=== PATIENT | female | born 1985 | race Caucasian/White ===

== ENCOUNTER 2016-12-16 14:35 | Emergency (ER) | payer SELFPAY ==
[~2016-12-16] VITALS: Ht 157.5 cm; Wt 52.0 kg
[~2016-12-16 14:35] MED LIST: Z.0.NO CURRENT MEDS
[2016-12-16 14:41] VITALS: BP 109/72; PULSE 77; RESP 16; TEMP 98.2; O2SAT 100
[2016-12-16] MEDS ORDERED: CLIN1CAP6 PO (16:07)
--- NOTE | 2016-12-16 16:08 | PD ---
HPI Chief Complaint: Skin Problem Time Seen by Provider: 15:25 Travel History International Travel<30 days: No Contact w/Intl Traveler<30days: No Traveled to known affect area: No History of Present Illness HPI 31-year-old female with history of IV drug abuse presents emergency department for right arm pain possible abscess. Patient reports she noticed some redness and swelling to the right AC approximately 1 days ago. She denies any recent drug use in that arm. She denies fever, chills, nausea or vomiting. She reports today after cleaning the house and repetitive use of the right arm she noticed that the area began to swell. [facility] Past Medical History Medical History: Denies Significant Hx Hx Anticoagulant Therapy: No Diabetes: No Tetanus Vaccination: < 5 Years Influenza Vaccination: No ?: Not LMP: Last week Tubal Ligation: Yes Social History Alcohol Use: No Tobacco Use: Yes (1/2 PPD) Substance Use: No (Former IVDA) Allergies-Medications (Allergen,Severity, Reaction): Coded Allergies: No Known Allergies (Unverified , 12/16/16) Reported Meds & Prescriptions Reported Meds & Active Scripts Active No Active Prescriptions or Reported Medications Review of Systems Except as stated in HPI: all other systems reviewed are Neg Physical Exam Narrative GENERAL: Well-nourished, well-developed patient. SKIN: Focused skin assessment warm/dry. 3 x 3 cm circular area of erythema and induration of right AC. There is no fluctuance. There is no surrounding cellulitis or lymphangitis. HEAD: Normocephalic. EYES: No scleral icterus. No injection or drainage. NECK: Supple, trachea midline. No JVD or lymphadenopathy. CARDIOVASCULAR: Regular rate and rhythm without murmurs, gallops, or rubs. RESPIRATORY: Breath sounds equal bilaterally. No accessory muscle use. GASTROINTESTINAL: Abdomen soft, non-tender, nondistended. MUSCULOSKELETAL: No cyanosis, or edema. BACK: Nontender without obvious deformity. No CVA tenderness. Data Data Last Documented VS Vital Signs Date Time Temp Pulse Resp B/P Pulse Ox O2 Delivery O2 Flow Rate FiO2 12/16/16 14:41 98.2 77 16 109/72 100 MDM Medical Decision Making Medical Screen Exam Complete: Yes Emergency Medical Condition: Yes Differential Diagnosis Cellulitis, early abscess Narrative Course 31-year-old female presents emergency department for evaluation of possible abscess in right arm. Patient has previous history of IV drug abuse. She denies any recent use. On exam she has a 3 x 3 cm circular erythematous indurated area over the antecubital region. There is no fluctuance. Needle aspiration of the area did not yield any purulent drainage. There is no surrounding cellulitis or lymphangitis. The area appears to be an early abscess that is not ready for I&D. Plan will be to put patient on antibiotics and have close follow-up in 1-2 days for possible incision and drainage at that time. This plan was discussed with patient in detail. She verbalizes understanding and agrees to plan. Return precautions discussed Diagnosis Primary Impression: Abscess Referrals: [facility] Additional Instructions: Take the antibiotics as prescribed. Apply warm compresses to the area. Return for reevaluation in one to 2 days. Scripts Clindamycin 300 Mg Plq482 Mg PO Q6H #40 CAP Ref 0 Prov:Lin Mustafa 12/16/16 Disposition: 01 DISCHARGE HOME Condition: Stable Lin Mustafa Dec 16, 2016 16:08
== END 2016-12-16 16:14 | disposition home or self-care (01) ==
LOC: PHEFT 14:35
DX: L02.413 Cutaneous abscess of right upper limb (principal)
CPT/HCPCS: 10160

== ENCOUNTER 2017-01-10 16:24 | Emergency (ER) | payer SELFPAY ==
[~2017-01-10] VITALS: Ht 157.5 cm; Wt 54.5 kg
[~2017-01-10 16:24] MED LIST changes: +CLIN1CAP6 PO; -Z.0.NO CURRENT MEDS
[2017-01-10 16:27] VITALS: BP 111/81; PULSE 91; RESP 18; TEMP 97.8; O2SAT 100
--- NOTE | 2017-01-10 16:40 | PD ---
HPI Chief Complaint: unresponsive Time Seen by Provider: 16:35 Travel History International Travel<30 days: No Contact w/Intl Traveler<30days: No Traveled to known affect area: No History of Present Illness HPI This 31-year-old female is brought by paramedics. They were called to her house because she became unresponsive. She admits that she used heroin shortly before this happened. Paramedics report that she was unresponsive with agonal respirations. They gave Narcan and she woke up promptly. Patient admits to using heroin today. She says she does not use it daily and has been using it for the last few months sporadically. She denies medical illness. She says is no chance of being . She has some mild headache now. PFSH Past Medical History Hx Anticoagulant Therapy: No Diabetes: No Tubal Ligation: Yes Social History Alcohol Use: No Tobacco Use: Yes (/2 PPD) Substance Use: No (Former IVDA) Allergies-Medications (Allergen,Severity, Reaction): Coded Allergies: No Known Allergies (Unverified , 01/10/17) Reported Meds & Prescriptions Reported Meds & Active Scripts Active No Active Prescriptions or Reported Medications Review of Systems General / Constitutional: No: Fever, Chills Eyes: No: Diploplia, Blurred Vision HENT: Positive: Headaches, No: Vertigo Cardiovascular: Positive: Chest Pain or Discomfort, No: Palpitations Respiratory: No: Cough, Shortness of Breath Gastrointestinal: No: Nausea, Vomiting Genitourinary: No: Urgency, Frequency Musculoskeletal: No: Myalgias, Arthralgias Skin: No Rash, No Itching Physical Exam Narrative GENERAL: Well-developed female SKIN: Focused skin assessment warm/dry. HEAD: Atraumatic. Normocephalic. EYES: Pupils equal and round. No scleral icterus. No injection or drainage. ENT: No nasal bleeding or discharge. Mucous membranes pink and moist. NECK: Trachea midline. No JVD. CARDIOVASCULAR: Regular rate and rhythm. No murmur appreciated. RESPIRATORY: No accessory muscle use. Clear to auscultation. Breath sounds equal bilaterally. GASTROINTESTINAL: Abdomen soft, non-tender, nondistended. Hepatic and splenic margins not palpable. MUSCULOSKELETAL: No obvious deformities. No clubbing. No cyanosis. No edema. NEUROLOGICAL: Awake and alert. No obvious cranial nerve deficits. Motor grossly within normal limits. Normal speech. PSYCHIATRIC: Appropriate mood and affect; insight and judgment normal. Data Data Last Documented VS Vital Signs Date Time Temp Pulse Resp B/P Pulse Ox O2 Delivery O2 Flow Rate FiO2 01/10/17 16:27 97.8 91 18 111/81 100 Orders Complete Blood Count With Diff (01/10/17 16:35) Basic Metabolic Panel (Bmp) (01/10/17 16:35) Labs Laboratory Tests Test 01/10/17 16:22 White Blood Count 4.8 TH/MM3 Red Blood Count 3.31 MIL/MM3 Hemoglobin 10.7 GM/DL Hematocrit 32.0 % Mean Corpuscular Volume 96.8 FL Mean Corpuscular Hemoglobin 32.2 PG Mean Corpuscular Hemoglobin 33.3 % Concent Red Cell Distribution Width 14.4 % Platelet Count 194 TH/MM3 Mean Platelet Volume 7.9 FL Neutrophils (%) (Auto) 60.0 % Lymphocytes (%) (Auto) 29.0 % Monocytes (%) (Auto) 5.5 % Eosinophils (%) (Auto) 4.7 % Basophils (%) (Auto) 0.8 % Neutrophils # (Auto) 2.9 TH/MM3 Lymphocytes # (Auto) 1.4 TH/MM3 Monocytes # (Auto) 0.3 TH/MM3 Eosinophils # (Auto) 0.2 TH/MM3 Basophils # (Auto) 0.0 TH/MM3 CBC Comment DIFF FINAL Differential Comment Sodium Level 142 MEQ/L Potassium Level 3.9 MEQ/L Chloride Level 108 MEQ/L Carbon Dioxide Level 26.1 MEQ/L Anion Gap 8 MEQ/L Blood Urea Nitrogen 5 MG/DL Creatinine 0.64 MG/DL Estimat Glomerular Filtration 108 ML/MIN Rate Random Glucose 135 MG/DL Calcium Level 7.8 MG/DL [facility] Medical Decision Making Medical Screen Exam Complete: Yes Emergency Medical Condition: Yes Medical Record Reviewed: Yes Differential Diagnosis Differential includes inadvertent overdose, heroin overdose, fentanyl overdose Narrative Course Patient had an excellent response to Narcan in the field. She has remained awake and alert. She is stable for discharge Diagnosis Primary Impression: Overdose Qualified Code: T50.901A - Overdose, accidental or unintentional, initial encounter Scripts No Active Prescriptions or Reported Meds Disposition: 01 DISCHARGE HOME Condition: Stable Guanakito Polanco MD Jan 10, 2017 16:40
[2017-01-10 16:48] LABS: AUTOMATED NEUTROPHIL # 2.9 TH/MM3 (1.8-7.7); BASOPHIL % 0.8 % (0.0-2.0); EOSINOPHIL # 0.2 TH/MM3 (0-0.4); EOSINOPHIL % 4.7 % (0.0-4.0); HEMO FLAGS DIFF FINAL; LYMPHOCYTE # 1.4 TH/MM3 (1.0-4.8); MEAN CELL VOLUME 96.8 FL (80.0-100.0); MEAN CORPUSCULAR HEMOGLOBIN 32.2 PG (27.0-34.0); MEAN CORPUSCULAR HGB CONC 33.3 % (32.0-36.0); MONO % 5.5 % (0.0-8.0); PLATELET COUNT 194 TH/MM3 (150-450); RED BLOOD COUNT 3.31 MIL/MM3 (4.00-5.30); RED CELL DISTRIBUTION WIDTH 14.4 % (11.6-17.2); WHITE BLOOD COUNT 4.8 TH/MM3 (4.0-11.0)
[2017-01-10 17:02] LABS: BICARBONATE 26.1 MEQ/L (21.0-32.0)
[2017-01-10 17:06] LABS: POTASSIUM 3.9 MEQ/L (3.5-5.1)
[2017-01-10 18:01] VITALS: BP 118/71
== END 2017-01-10 18:08 | disposition home or self-care (01) ==
LOC: PHED 16:24
DX: T40.1X1A Poisoning by heroin, accidental (unintentional), initial encounter (principal); R51 Headache
CPT/HCPCS: 80048; 85025; 99283